=== PATIENT | female | born 1975 | race Caucasian/White ===

== ENCOUNTER 2018-03-03 18:10 | Emergency (ER) | payer OTHER ==
[2018-03-03 19:28] LABS: APPEARANCE,URINE CLOUDY; BILIRUBIN,URINE NEGATIVE (NEGATIVE); CALCIUM OXALATE CRYSTALS,URINE MANY /HPF; COLOR,URINE AMBER; GLUCOSE, URINE NEGATIVE (NEGATIVE); KETONES,URINE 80 mg/dL (NEGATIVE); LEUKOCYTE ESTERASE,URINE LARGE (NEGATIVE); NITRITE,URINE NEGATIVE (NEGATIVE); PROTEIN,URINE 30 mg/dL (NEGATIVE); URINE SPECIFIC GRAVITY 1.032
[2018-03-03] MEDS ORDERED: ALPRAZOLAM 0.5 MG TABLET PO ONE (19:34)
[2018-03-03 19:39] LABS: URINE AMPHETAMINES SCREEN NEGATIVE; URINE BARBITURATES SCREEN NEGATIVE; URINE BENZODIAZEPINES SCREEN UNCONFIRMED POSITIVE; URINE COCAINE SCREEN NEGATIVE; URINE MARIJUANA (THC) SCREEN NEGATIVE; URINE METHADONE SCREEN NEGATIVE; URINE PHENCYCLIDINE SCREEN NEGATIVE
--- NOTE | 2018-03-03 19:39 | ER Document Report ---
ED Psych Disorder / Suicide - General Chief Complaint: Psych Problem Stated Complaint: PSYCH Time Seen by Provider: 03/03/18 19:21 Mode of Arrival: Ambulatory Information source: Patient Notes: 42-year-old female brought in by because she has been suicidal and and significant depression. Patient has 3 sons, 1 of which committed suicide (the middle son-15 years old) 2 weeks ago. Second son was recently arrested for possession and is been threatening suicide. Patient was seen by counselor at [facility] and she is been on Wellbutrin for the last few days as well as Xanax. TRAVEL OUTSIDE OF THE [place] IN LAST 30 DAYS: No - HPI Patient complains to provider of: Suicidal ideation. No: Suicidal plan Onset: Last week Onset was: Gradual Quality of pain: No pain Severity: None Pain Level: Denies Suicide Risk Factors: Depressed Situational problems related to: Other - Son just killed himself Injury to: No: Generalized, Abdomen, Ankle, Back, Breast, Buttocks, Chest, Elbow , Epigastric, Flank, Face, Finger, Foot, Hand, Head, Hip, Knee, Leg, Lower extremity, Mouth, Neck, Pelvic, Penis, Perineum, Rectum, Shoulder, Testicle, Thigh, Throat, Trunk, Upper extremity, Vagina, Wrist Normal mood: No Associated symptoms: Depressed. No: Normal mood Similar symptoms previously: No Recently seen / treated by doctor: No - Related Data Allergies/Adverse Reactions: No Known Allergies Allergy (Verified 03/03/18 19:04) Past Medical History - General Information source: Patient - Social History Smoking Status: Unknown if Ever Smoked Cigarette use (# per day): No Chew tobacco use (# tins/day): No Drug Abuse: None Lives with: Family Family History: None Patient has suicidal ideation: Yes Patient has homicidal ideation: No - Past Medical History Cardiac Medical History: Reports: Hx Hypertension Renal/ Medical History: Denies: Hx Peritoneal Dialysis Past Surgical History: Reports: Hx Abdominal Surgery - gastric bypasss, Hx Tubal Ligation Review of Systems - Review of Systems Constitutional: denies: Chills, Fever EENT: No symptoms reported Cardiovascular: No symptoms reported Respiratory: No symptoms reported Gastrointestinal: See HPI Genitourinary: No symptoms reported Female Genitourinary: No symptoms reported Musculoskeletal: No symptoms reported Skin: No symptoms reported Hematologic/Lymphatic: No symptoms reported Neurological/Psychological: No symptoms reported Physical Exam - Vital signs Vitals: Temp Pulse Resp BP Pulse Ox 97.8 F 87 18 143/81 H 97 03/03/18 18:35 03/03/18 18:35 03/03/18 18:35 03/03/18 18:35 03/03/18 18:35 Notes: Physical exam: GENERAL: Patient is alert and oriented x3, crying, very depressed HEAD: Atraumatic, normocephalic. EYES: Pupils equal round and reactive to light, extraocular movements intact, sclera anicteric, conjunctiva are normal. ENT: TMs normal, nares patent, oropharynx clear without exudates. Moist mucous membranes. NECK: Normal range of motion, supple without obvious mass or JVD. LUNGS: Breath sounds clear to auscultation bilaterally and equal. No wheezes rales or rhonchi. HEART: Regular rate and rhythm without murmurs, rubs or gallops. ABDOMEN: Soft, normoactive bowel sounds. No tenderness to palpation. No guarding, no rebound. No masses appreciated. EXTREMITIES: Normal range of motion, no pitting or edema. No clubbing or cyanosis. NEUROLOGICAL: Cranial nerves II through XII grossly intact. Normal speech, moving all extremities. PSYCH: Emotionally labile, crying, depressed. Does report having suicidal ideations. Very concerned about her 2 remaining sons. SKIN: Warm, Dry, normal turgor, no rashes or lesions noted. Course - Re-evaluation Re-evalutation: 03/04/18 04:05 Note: Patient has no symptoms of UTI. Urine sample shows many squamous epithelial cells (not a good sample). Also, she is on Synthroid for hypothyroidism. - Vital Signs Vital signs: Temp Pulse Resp BP Pulse Ox 97.8 F 87 18 143/81 H 97 03/03/18 18:35 03/03/18 18:35 03/03/18 18:35 03/03/18 18:35 03/03/18 18:35 - Laboratory Result Diagrams: 03/03/18 21:30 03/03/18 21:30 Laboratory results interpreted by me: 03/03/18 03/03/18 03/03/18 19:00 21:30 21:30 TSH 57.20 H Free T4 0.76 L Free T3 pg/mL 2.26 L Urine Protein 30 H Urine Ketones 80 H Urine Urobilinogen 4.0 H Ur Leukocyte Esterase LARGE H Salicylates < 1.0 L Acetaminophen < 10 L Discharge - Discharge Clinical Impression: Major depression Condition: Stable Disposition: HOME, SELF-CARE
[2018-03-03 21:49] LABS: ABSOLUTE EOSINOPHILS # (AUTO) 0.1 10^3/uL (0.0-0.6); ABSOLUTE LYMPHOCYTES (AUTO) 2.4 10^3/uL (0.5-4.7); ABSOLUTE MONOCYTES (AUTO) 0.5 10^3/uL (0.1-1.4); ABSOLUTE NEUT (AUTO) 3.7 10^3/uL (1.7-8.2); BASOPHILS % (AUTO) 0.4 % (0-2); EOSINOPHILS % (AUTO) 1.1 % (0-6); HEMATOCRIT 41.1 % (36.0-47.0); HEMOGLOBIN 14.2 g/dL (12.0-15.5); LYMPHOCYTES % (AUTO) 35.4 % (13-45); MEAN CORPUSCULAR HEMOGLOBIN 30.4 pg (27.0-33.4); MEAN CORPUSCULAR HGB CONC 34.7 g/dL (32.0-36.0); MEAN CORPUSCULAR VOLUME 88 fl (80-97); MONOCYTES % (AUTO) 7.7 % (3-13); PLATELET COUNT 217 10^3/uL (150-450); RED BLOOD COUNT 4.68 10^6/uL (3.72-5.28); RED CELL DISTRIBUTION WIDTH 13.9 % (11.5-14.0); SEGMENTED NEUTROPHILS % (AUTO) 55.4 % (42-78); TOTAL CELLS COUNTED % (AUTO) 100 %; WHITE BLOOD COUNT 6.8 10^3/uL (4.0-10.5)
[2018-03-03 22:09] LABS: ALANINE AMINOTRANSFERASE 45 U/L (9-52); ALBUMIN 4.1 g/dL (3.5-5.0); ALKALINE PHOSPHATASE 86 U/L (38-126); ANION GAP 13 (5-19); ASPARTATE AMINO TRANSFERASE 33 U/L (14-36); BILIRUBIN,DIRECT 0.2 mg/dL (0.0-0.4); BILIRUBIN,TOTAL 0.5 mg/dL (0.2-1.3); BLOOD UREA NITROGEN 8 mg/dL (7-20); CALCIUM 9.7 mg/dL (8.4-10.2); CARBON DIOXIDE 26 mmol/L (22-30); CHLORIDE 104 mmol/L (98-107); GLUCOSE 88 mg/dL (75-110); POTASSIUM 4.1 mmol/L (3.6-5.0); SODIUM 143.3 mmol/L (137-145); TOTAL PROTEIN 6.5 g/dL (6.3-8.2)
[2018-03-03 22:10] LABS: ACETAMINOPHEN < 10 ug/mL (10-30); ALCOHOL < 10 mg/dL (NONE DETECTED); SALICYLATE < 1.0 mg/dL (2.0-20.0)
[2018-03-03 22:26] LABS: FREE T3 2.26 pg/mL (2.77-5.27); FREE T4 (FREE THYROXINE) 0.76 ng/dL (0.78-2.19)
[2018-03-03 22:40] LABS: THYROID STIMULATING HORMONE 57.2 uIU/mL (0.47-4.68)
[2018-03-03] MEDS: ALPRAZOLAM 0.5 MG TABLET PO PRN (22:53)
[2018-03-04] MEDS ORDERED: ALBUTEROL SULFATE HFA (90 MCG/PUFF) 8 GM MDI (1 MDI/ER DISP) IH PRN ×2 (06:56→13:00)
--- NOTE | 2018-03-04 07:37 | EKG REPORT ---
SEVERITY:- NORMAL ECG - SINUS RHYTHM : Confirmed by: Tay Wray MD 04-Mar-2018 07:36:22
[2018-03-04] MEDS: ALPRAZOLAM 0.5 MG TABLET PO PRN ×2 (07:46→12:49)
[2018-03-04] MEDS ORDERED: BUPROPION HCL 100 MG TABLET PO SCH (08:00)
[2018-03-04] MEDS: LEVOTHYROXINE SODIUM 0.1 MG TABLET PO SCH (08:34)
--- NOTE | 2018-03-04 09:39 | ER Document Report ---
Doctor's Note Notes: 05/04/17 09:43 Rounds: Chart reviewed and patient interviewed. Patient being evaluated for depression and suicidal ideation. Says she has a history of thyroid disease and is on thyroid daily. Her thyroid functions were low. She has been started on thyroid. Patient's urine looks like she may have a UTI, but patient has no symptoms of a UTI. Therefore, I have ordered a culture of her urine but will not treat her with any antibiotics unless the culture shows positive. Vital signs were all essentially normal. Patient appears to be medically stable for transfer or discharge. Kayla Dickey MD 03/05/18 12:19 urine culture negative at 24 hrs MARCIN
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
[2018-03-04] MEDS: FLUOXETINE HCL 20 MG CAPSULE PO SCH (13:59)
[2018-03-04] MEDS ORDERED: ALPRAZOLAM 0.5 MG TABLET PO PRN (14:00)
[2018-03-04] MEDS: BUSPIRONE HCL 10 MG TABLET PO SCH (18:43)
[2018-03-05] MEDS: ALPRAZOLAM 0.5 MG TABLET PO PRN (00:30)
[2018-03-05] MEDS ORDERED: ACETAMINOPHEN 325 MG TABLET PO ONE (07:47)
[2018-03-05] MEDS: LEVOTHYROXINE SODIUM 0.1 MG TABLET PO SCH (07:52)
[2018-03-05] MEDS: FLUOXETINE HCL 20 MG CAPSULE PO SCH (09:27)
[2018-03-05] MEDS: BUSPIRONE HCL 10 MG TABLET PO SCH (09:27)
--- NOTE | 2018-03-05 09:40 | ER Document Report ---
Doctor's Note Notes: 03/05/18 09:39 Patient evaluated. She is resting comfortably and in no acute distress. She denies any current suicidal ideation. She does express a significant amount of grief and sadness over the loss of her son. She feels motivated to seek counseling and continue on past this loss. She currently denies any suicidal ideation. Her in the room feels comfortable with her being discharged home today. He feels able to watch her and keep her safe. She states she feels comfortable talking about her feelings and returning to the emergency room if her depression and suicidal thoughts continue. She will follow with grief counseling and psychiatry as an outpatient. Final medication recommendations and dispel currently pending psych evaluation today.
[2018-03-05] MEDS ORDERED: BUPROPION HCL 75 MG TABLET PO SCH ×2 (10:00)
--- NOTE | 2018-03-05 11:23 | PSYCHOLOGICAL NOTE ---
Psych Note - Psych Note Date seen by psych provider: 03/05/18 Time seen by psych provider: 07:55 Psych Note: Reason for Consult: suicidal ideation 42-year-old female brought in by because she has been suicidal and and significant depression. Patient has 3 sons, 1 of which committed suicide (the middle son-15 years old) 2 weeks ago. Check-in conducted with patient Patient reports she is feeling much clearer today. She states that she did have to use her Xanax last night and still woke up in exactly 6 AM this morning. She understands that this is normal process and feels that she is going to be able to process her emotions. Patient is already engaged in grief counseling both as a family and individually. Patient's arrived. He reports he feels comfortable with the patient returning home and has no further concerns. He agrees to assist the patient in reminding her of her coping skills i.e. calling her mother when she wants to talk when it is overwhelming to him. They both agree to remember the grief process is different for every person and to be patient with each other. Both reported that they will come to [facility] immediately if new concerns arise. Medication recommendations per [facility]'s contracted psychiatrist Dr. Joe MICHELE are as follows please reduce Wellbutrin to 75 mg for 5 days then discontinue please start Prozac 20 mg daily please start BuSpar 10 mg twice daily please continue home medication of Xanax at 0.5 mg 3 times daily as needed Diagnosis Bereavement 311 (F32.9) specified depressive disorder per history provided by patient 300.00 (F41.9) unspecified anxiety disorder per history provided by patient Impression\plan:Patient is recommended for rescind of IVC and is cleared from acute psychiatric services. Patient is suffering from significant grief after the suicide of her middle son 2 weeks ago. Patient denies current thoughts of harming himself. Patient is already engaged in grief counseling and attempted to restart medications demonstrating good insight and judgment. Medication recommendations have been provided with medication adjustments. Patient's agrees to be part of the discharge plan ie no access to medication or weapons and follows through with mental health recommendations. Dr. Carter was consulted and the care management of this patient; attending physicians in agreement with recommendations and disposition.
[2018-03-05 13:24] VITALS: BP 116/82
== END 2018-03-05 13:24 | disposition home or self-care (01) ==
LOC: ER 18:10
DX: F32.9 Major depressive disorder, single episode, unspecified (principal); R06.02 Shortness of breath; R45.851 Suicidal ideations; E03.9 Hypothyroidism, unspecified; I10 Essential (primary) hypertension; Z98.84 Bariatric surgery status; Z98.51 Tubal ligation status
CPT/HCPCS: 93005; 36415; 87086; 84439; 80307 ×4; 84443; 84703; 85025; 87088; 80053; 81001; 84481; 93010; J3490; 99285